=== PATIENT | female | born 1980 | race Two or more races ===

== ENCOUNTER → 2024-11-08 | Outpatient (CLI) | payer MEDICAID, SELFPAY ==
[2024-11-07 11:06] LABS: Basophils % (Auto) 1 % (0-2.5); Eosinophils # (Auto) 0.4 Thou/mm3 (0.0-0.5); Eosinophils % (Auto) 5 % (0-10); Hemoglobin 13.4 g/dL (12.0-16.0); Immature Granulocytes % (Auto) 0 % (0-0); Immature Granulocytes Auto 0.01 Thou/mm3 (0.00-0.00); Lymphocytes # (Auto) 1.9 Thou/mm3 (1.0-4.8); Lymphocytes % (Auto) 28 % (10-50); Mean Corpuscular HGB Conc 33.5 g/dl (31.0-37.0); Mean Corpuscular Hemoglobin 30.2 pg (25.0-35.0); Mean Corpuscular Volume 90 fL (80-100); Monocytes # (Auto) 0.3 Thou/mm3 (0.0-0.8); Monocytes % (Auto) 4 % (0-12); Neutrophils # (Auto) 4.2 Thou/mm3 (1.8-7.7); Neutrophils % (Auto) 62 % (37-80); Nucleated Red Blood Cell % 0 /100 WBC (0); Platelet Count 278 Thou/mm3 (140-440); RDW Standard Deviation 40.8 fL (36.4-46.3); Red Blood Count 4.44 Miln/mm3 (4.00-5.20); White Blood Count 6.8 Thou/mm3 (3.6-11.0)
[2024-11-07 11:09] LABS: HCG,Qualitative Serum Negative
[2024-11-07 11:14] LABS: Partial Thromboplastin Time 28.6 Seconds (22.0-36.0); Prothrombin Time 10.9 Seconds (9.0-12.2)
--- NOTE | 2024-11-08 09:30 | XR_ITS ---
Examination: Breast ultrasound, unilateral, left complete Date and time of exam: November 08, 2024 0926 hours INDICATIONS: History left breast cyst 3:00 position Technique: Real-time hicks scale ultrasonographic imaging performed left breast including all 4 quadrants as well as nipple retroareolar and axillary region. Findings: 12:00 cyst 6 x 8 mm 12:00 cyst 4 x 3 mm 11:00 cyst 4 x 5 mm IMPRESSION: BI-RADS Category 2: Benign findings
== END | disposition home or self-care (01) ==
LOC: SDIM 08:40
PROVIDERS: Radiology Diagnostic Radiology; PCP Obstetrics & Gynecology; Referring Provider Nurse Practitioner Family; Visit Provider Nurse Practitioner Family
DX: N60.02 Solitary cyst of left breast (principal); N63.20 Unspecified lump in the left breast, unspecified quadrant
CPT/HCPCS: 36415; 76641; 84703; 85025; 85610; 85730

== ENCOUNTER 2025-07-04 08:35 | Day surgery (SDC) | payer MEDICAID, SELFPAY ==
[2025-07-03 11:37] VITALS: BMI 37.8
[2025-07-04] VITALS (10 sets, daily range): BP systolic 110–139; BP diastolic 72–87; PULSE 86–101; RESP 12–16; TEMP 36.3–37.2; O2SAT 95–100; BMI 30.7
[2025-07-04] MEDS: RINGERS LACTATED 500 ML 500 ML 20 ML IV (10:28)
[2025-07-04] MEDS: fentaNYL CIT INJ 50 mCg/ML AMP 2ML (ASD USE ONLY) IVP (10:30)
[2025-07-04] MEDS: SIMETHICONE 40 MG/0.6 ML ORAL SYRINGE PO (10:39)
[2025-07-04] MEDS: MIDAZOLAM INJ 1 MG/ML VIAL 2 ML (ASD USE ONLY) 2 MG IVP (10:40)
== END 2025-07-04 11:38 | disposition home or self-care (01) ==
PROVIDERS: Referring Provider Internal Medicine Gastroenterology; Visit Provider Internal Medicine Gastroenterology
PROC: 0DBE8ZX Excision of Large Intestine, Via Natural or Artificial Opening Endoscopic, Diagnostic (ICD-10-PCS; CPT 45380; principal; 2025-07-04 12:00)
DX: D12.4 Benign neoplasm of descending colon (principal); K63.89 Other specified diseases of intestine; K52.9 Noninfective gastroenteritis and colitis, unspecified; K64.9 Unspecified hemorrhoids; E88.810 Metabolic syndrome
CPT/HCPCS: 45380; 81025; A4649; J1200; J2250; J3010; J7120; A9270